=== PATIENT | male | born 1960 | race Caucasian/White ===

== ENCOUNTER 2017-12-17 09:16 | Outpatient (CLI) | payer OTHER | END 2017-12-17 09:17 | disposition critical access hospital (66) | LOC: EMS 09:16 | PROVIDERS: ATTEND Surgery | DX: M54.5 Low back pain (principal); V59.40XA Driver of pick-up truck or van injured in collision with unspecified motor vehicles in traffic accident, initial encounter; Y92.413 State road as the place of occurrence of the external cause; Y99.0 Civilian activity done for income or pay | CPT/HCPCS: A0425; A0429 ==

== ENCOUNTER 2017-12-17 10:02 | Emergency (ER) | payer OTHER ==
[2017-12-17] MEDS ORDERED: IBUPROFEN 400 MG TABLET PO STA (10:26)
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
[2017-12-17] MEDS ORDERED: LIDOCAINE PATCH 5% TOP PRN (11:40)
[2017-12-17 11:55] VITALS: BP 136/84
== END 2017-12-17 11:54 | disposition home or self-care (01) ==
LOC: ED 10:02
DX: S13.9XXA Sprain of joints and ligaments of unspecified parts of neck, initial encounter (principal); S13.4XXA Sprain of ligaments of cervical spine, initial encounter; Y92.411 Interstate highway as the place of occurrence of the external cause; V53.5XXA Driver of pick-up truck or van injured in collision with car, pick-up truck or van in traffic accident, initial encounter
CPT/HCPCS: 1040M; 71046; 72040; 72170; 99283; A9270